=== PATIENT | male | born 1995 | race Caucasian/White ===

== ENCOUNTER 2021-04-21 17:30 | Emergency (ER) | payer BC, SELFPAY ==
[2021-04-21 17:31] VITALS: BP 117/74; PULSE 98; RESP 18; TEMP 38.9; O2SAT 99; BMI 26.0
[2021-04-21 17:33] VITALS: BP 117/74; PULSE 93; RESP 18; TEMP 38.9; O2SAT 99
--- NOTE | 2021-04-21 18:34 | EDS_ITS ---
HPI History of Present Illness Chief Complaint: Sore Throat Informant: patient Narrative Narrative: Patient is a 26-year-old previously healthy male who presents to the emergency department for sore throat. He states his symptoms started this past Thursday. He was seen at an urgent care and treated with amoxicillin and prednisone. He is still on the amoxicillin but finishes course of prednisone. He does not feel he got any better. He was tested for Covid, mono and strep which were all negative. He has had a fever up to 102. No known sick contacts. He has had some intermittent headaches. No ear pain. He has had a mild cough that is nonproductive. No chest pain or shortness of breath. No rashes. He has never had this issue before. He does feel like his voice has mildly changed. He has pain when swallowing. He has decreased oral intake because of this. He denies any nausea/vomiting, diarrhea. PFSH PFSH Home Medications amoxicillin-pot clavulanate 1 tab PO BID 04/21/21 [History Last Taken Unknown] clindamycin HCl [Cleocin HCl] 300 mg PO Q8H 10 Days #30 cap 04/21/21 [Rx Last Taken Unknown] Allergy/AdvReac Type Severity Reaction Status Date / Time No Known Allergies Allergy Verified 03/25/14 10:21 Social History Smoking Status: Current every day smoker tobacco type: cigarettes ROS ROS ED Constitutional Constitutional ED: Reports fever(s) Eyes Eyes: Denies change in vision ENT ENT ED: Reports sore throat; Denies ear pain, epistaxis or rhinorrhea Cardiovascular Cardiovascular: Denies chest pain or palpitations Respiratory/Chest Respiratory/Chest: Denies cough, dyspnea or dyspnea on exertion Gastrointestinal Gastrointestinal: Denies abdominal pain, diarrhea, nausea or vomiting Musculoskeletal Musculoskeletal: Denies back pain or neck pain Integumentary Denies rash Neurologic Neurologic: Denies dizziness or weakness EXAM Physical Exam Const Vital Signs: 04/21/21 17:31 04/21/21 17:33 Temperature 102.0 F H 102.0 F H Temperature Source Temporal Temporal Pulse Rate 98 93 Respiratory Rate 18 18 Blood Pressure 117/74 117/74 Blood Pressure Mean 88 88 Pulse Ox 99 99 Oxygen Delivery Method Room Air Room Air Positive well nourished and well developed General Appearance ED: well developed and NAD HEENT Reports normocephalic, head/scalp atraumatic, TM's clear and moist mucous membranes HEENT Narrative: Symmetrically enlarged tonsils bilaterally. There are white patches present. No unilateral swelling. Uvula midline. No stridor present. No submandibular swelling or evidence of Brian's angina. There are some cervical lymph nodes/tenderness present. Tympanic Membrane ED: Yes TM's clear Eyes PERRL and EOMs intact bilaterally Neck supple Chest Wall inspection of chest normal Resp normal respiratory effort and clear to auscultation bilaterally Auscultation: Negative for rales, rhonchi or wheezes Cardio regular rate, regular rhythm and no murmurs GI normal to inspection, nondistended, normoactive bowel sounds and non-tender Palpation: soft; Negative for guarding or rebound tenderness present Extremity normal to inspection General Extremety ED: Negative for edema or tenderness General Extremity: Negative for edema Neuro oriented x3, CN's II-XII intact bilaterally and no sensory deficits noted Sensorium / Orientation: alert Motor Exam: strength 5/5 throughout Psych mental status grossly normal Skin no rashes or lesions noted MDM MDM MDM Narrative Medical decision making narrative: Patient presents the ED for sore throat. On exam he does have large, patchy tonsils bilaterally. He is febrile 102. He is not tachycardic with this. Satting 99% on room air. No acute distress. Will check strep throat swab. Will treat symptomatically with a dose of Decadron and Tylenol. Patient strep test came back negative. Basic lab work was obtained given his fever which did not have a high white blood cell count. No significant acute electrolyte disturbance. With the negative strep test. CT imaging was obtained which showed symmetrical enlargement of his tonsils. No obvious abscess or significant airway involvement. At this time recommend symptomatic treatment with the Decadron. He is given a prescription for clindamycin. 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 Return precautions are reviewed with him including inability to swallow or difficulty breathing. He understands and is agreeable to plan. Discharged home in stable condition. All questions are answered. Discharge Plan Triage Chief Complaint: Sore Throat ED Provider: Jorge Alberto Reagan Dx/Rx/DC Orders Clinical Impression: Acute tonsillitis Instructions: ED Tonsillitis Prescriptions: New clindamycin HCl [Cleocin HCl] 300 mg capsule 300 mg PO Q8H 10 Days Qty: 30 RF: 0 No Action amoxicillin-pot clavulanate 875-125 mg tablet 1 tab PO BID RF: 0 Primary Care Provider: Care Physician,No Primary Referrals: Kenrick Coffey MD [STAFF PHYSICIAN] - 1 Day Care Physician,No Primary [Primary Care Provider] - Disposition Disposition: Home, Self Care Discharge Date/Time: 04/21/21 21:10
[2021-04-21] MEDS: dexAMETHasone 10 MG/ML Vial PO.IVFORM (18:40)
[2021-04-21] MEDS: Acetaminophen 650 MG/20 ML UDC PO (19:03)
--- NOTE | 2021-04-21 19:22 | CT_ITS ---
STUDY: CT SOFT TISSUE NECK WITH CONTRAST REASON FOR EXAM: Male, 26 years old. Dysphagia RADIATION DOSAGE (If Supplied By Facility): CTDIvol = ( 16.04 ) mGy, DLP = ( 532.97 ) mGycm TECHNIQUE: The patient was scanned in a multi-detector CT scanner. High resolution transaxial imaging was performed following intravenous administration of IV 75mL [id number]-[id number]. Sagittal and coronal images were reconstructed. Individualized dose optimization techniques were used for this CT. COMPARISON: None. FINDINGS: Normal bilateral parotid glands. Normal bilateral counseling services director spaces. Normal bilateral parapharyngeal spaces. Normal bilateral carotid spaces. Normal bilateral sublingual and submandibular glands and spaces. Normal visualized nasopharynx. Normal retropharyngeal space. Normal perivertebral space. Mild symmetric enlargement of the bilateral faucial tonsils. This is likely due to tonsillitis. There is no suspicious enhancing fluid collection to suspect an abscess. There is mild symmetric narrowing of the airway due to the enlarged tonsils but no airway deviation. The visualized tongue, tongue base and oropharynx are normal. The visualized cervical lymph nodes (levels I-) are within normal size limits, and maintain normal morphology. There is no demonstrated solid or cystic mass lesion. There is no abnormal contrast enhancement. Normal epiglottis, bilateral vallecula and hypopharynx. The pre-epiglottic and paraglottic adipose spaces are normal. Normal visualized bilateral piriform sinuses, aryepiglottic folds, vocal cords, and arytenoid-cricoid articulations. Normal subglottic trachea. Normal bilateral lobes of the thyroid gland. Normal visualized pulmonary apices. Normal visualized paranasal sinuses. Normal visualized cervical spine. CT/Soft Tissue Neck WITH Contrast IMPRESSION: Mild symmetric enlargement of the faucial tonsils. Findings suggest nonspecific tonsillitis. There is mild narrowing of the airway but no deviation is noted. There are associated subcentimeter likely reactive lymph nodes. No suspicious bulky adenopathy or enhancing lesion noted. Electronically Signed: Deo Fierro MD at 20:35 EDT , Service support ,
[2021-04-21 19:50] LABS: Absolute Lymphocyte Count 1.08 X10^3/uL (0.83-4.51); Absolute Neutrophil Count 6.8 X10^3/uL (2.0-7.7); Basophil# 0.02 X10^3/uL; Basophil% 0.2 % (0-1); Eosinophil# 0.01 X10^3/uL; Eosinophils% 0.1 % (0-5); Hematocrit 42.5 % (40-54); Hemoglobin 14.5 g/dL (13.0-16.5); Lymphocyte # 1.08 X10^3/ul (0.83-4.51); Lymphocyte % 12.4 % (19-41); Mean Corp Hgb Conc 34.1 g/dL (32-36); Mean Corpuscular Hgb 29.7 pg (27.0-32.0); Mean Corpuscular Volume 87.1 fL (80-94); Mean Platelet Vol. 9.4 fl (6.2-12.0); Monocyte# 0.81 X10^3/uL; Monocyte% 9.3 % (0-10); NRBC Flagged by Analyzer 0 % (0-5); Neutrophil # 6.78 X10^3/uL (2.7-7.7); Neutrophil % 77.7 % (47-70); POSITIVE MORPHOLOGY YES; Platelet Count 198 K/mm3 (150-450); RBC Distribution Width CV 12.1 % (11.6-14.6); RBC Distribution Width SD 38.9 fl (35.1-43.9); Red Blood Count 4.88 M/mm3 (4.6-6.2); White Blood Count 8.7 K/mm3 (4.4-11.0)
[2021-04-21 19:54] LABS: Differential Indicated SCAN CRITERIA MET
[2021-04-21 20:04] LABS: Anion Gap 4 (5-15); BUN 11 mg/dL (7-18); BUN/Creat Ratio 11.5 RATIO (10-20); Calcium,Total 8.4 mg/dL (8.5-10.1); Chloride 103 mmol/L (98-107); Creatinine, Serum 0.96 mg/dL (0.70-1.30); EST Glomerular Filtration Rate 100 mL/min (>60); Est Glom Filt Rate - Afr Amer 121 mL/min (>60); Estimated Creatinine Clearance 122.01 ml/min; Glucose 122 mg/dL (74-106); Potassium 3.6 mmol/L (3.5-5.1); Sodium Level 136 mmol/L (136-145)
[2021-04-21 21:08] VITALS: PULSE 87; RESP 16; TEMP 37.3; O2SAT 98
[2021-04-21 22:02] LABS: Atypical Lymphocyte RARE %; Differential Comment SCANNED; Platelet Estimate ADEQUATE (ADEQ); Reactive Lymphocyte RARE; Red Cell Morphology NORM C+C NORMAL (NORM C&C)
[2021-04-22 12:41] LABS: Pathologist Review Reviewed
== END 2021-04-21 21:10 | disposition home or self-care (01) ==
PROVIDERS: Emergency Provider Emergency Medicine
DX: J03.90 Acute tonsillitis, unspecified (principal); F17.210 Nicotine dependence, cigarettes, uncomplicated
CPT/HCPCS: 70491; 80048; 85025; 87880; 99284; Q9967

== ENCOUNTER → 2021-04-24 | Outpatient (CLI) | payer BC, SELFPAY ==
[2021-04-21 17:31] VITALS: BMI 26.0
== END | disposition home or self-care (01) ==
LOC: LABSPEC 10:09
PROVIDERS: Referring Provider Otolaryngology; Visit Provider Otolaryngology
DX: J02.9 Acute pharyngitis, unspecified (principal)
CPT/HCPCS: 87070; 87077; 87186